=== PATIENT | female | born 1975 | race Caucasian/White ===

== ENCOUNTER 2022-01-10 13:10 | Emergency (ER) | payer BC | END 2022-01-10 15:52 | disposition home or self-care (01) | LOC: JD.ED 13:10 | DX: M25.551 Pain in right hip (principal); M25.552 Pain in left hip; M62.81 Muscle weakness (generalized); E78.00 Pure hypercholesterolemia, unspecified; E11.9 Type 2 diabetes mellitus without complications; Z88.0 Allergy status to penicillin; Z79.899 Other long term (current) drug therapy; Z79.4 Long term (current) use of insulin | CPT/HCPCS: 72100; 72100-26; 72170; 72170-26; 99283-25; 99284 ==

== ENCOUNTER 2024-10-23 06:25 | Emergency (ER) | payer BC, OTHER ==
[2024-10-23] MEDS: HYDROmorphone 0.5 MG/0.5 ML Syringe IVPUSH ONE (07:31)
[2024-10-23] MEDS: Sodium Chloride 0.9% 10 ML Syringe FLUSH PRN (07:39)
[2024-10-23] MEDS: Propofol 200 MG/20 ML SDV IVPUSH ONE (07:39)
[2024-10-23] MEDS: ceFAZolin 2 GM in Sodium Chloride 0.9% 50 ML IV ONE (07:56)
== END 2024-10-23 08:45 | disposition home or self-care (01) ==
LOC: JD.ED 06:25
DX: S93.04XA Dislocation of right ankle joint, initial encounter (principal); S82.891B Other fracture of right lower leg, initial encounter for open fracture type I or II; S82.831A Other fracture of upper and lower end of right fibula, initial encounter for closed fracture; E78.00 Pure hypercholesterolemia, unspecified; E11.9 Type 2 diabetes mellitus without complications; Z90.89 Acquired absence of other organs; Z88.0 Allergy status to penicillin; Z79.4 Long term (current) use of insulin; Z79.899 Other long term (current) drug therapy; W00.0XXA Fall on same level due to ice and snow, initial encounter
CPT/HCPCS: 27840; 73590; 73600; 96365; 96375; 99152; 99284; J0690; J1171; J2704; J3490